=== PATIENT | female | born 1995 | race Caucasian/White ===

== ENCOUNTER 2016-08-16 15:30 | Outpatient (CLI) | payer OTHER | END 2016-08-16 15:31 | disposition home or self-care (01) | DX: M67.472 Ganglion, left ankle and foot (principal); S93.492S Sprain of other ligament of left ankle, sequela; M25.472 Effusion, left ankle; M25.9 Joint disorder, unspecified ==

== ENCOUNTER 2018-03-25 20:07 | Emergency (ER) | payer OTHER ==
[2018-03-25] MEDS ORDERED: ACETAMINOPHEN 500 MG TABLET PO STA (20:17)
[2018-03-25] MEDS ORDERED: METOCLOPRAMIDE 10 MG TABLET PO STA (20:19)
--- NOTE | 2018-03-25 20:33 | ED Physician Documentation ---
History of Present Illness - Stated complaint Stated Complaint: FEVER - Chief complaint Chief Complaint: General - Additonal information Additional information: 22-year-old female presents the emergency department with 1 day of fever, chills, nausea, cough, sore throat and body aches. The patient's symptoms have not improved with DayQuil. The patient denies shortness of breath, abdominal pain headache or stiff neck. No other associated symptoms. Symptoms are described as moderate. Review of Systems Constitutional: reports: Fever, Chills, Fatigue Eyes: denies: Discharge Ears: reports: Ear pain Nose: reports: Rhinorrhea / runny nose, Congestion Throat: denies: Sore throat Cardiac: denies: Chest pain / pressure Respiratory: reports: Cough GI: reports: Nausea. denies: Vomiting : denies: Dysuria Skin: denies: Rash Musculoskeletal: denies: Neck pain Immunocompromised: denies: Chemotherapy PD PAST MEDICAL HISTORY - Past Medical History Past Medical History: No - Past Surgical History Past Surgical History: No - Present Medications Home Medications: Ambulatory Orders Medication Instructions Recorded Confirmed Naproxen 500 mg PO BID PRN #60 tablet 03/25/18 Ondansetron HCl [Zofran] 4 mg PO Q6HR PRN #30 tablet 03/25/18 - Allergies Allergies/Adverse Reactions: Allergies Allergy/AdvReac Type Severity Reaction Status Date / Time Penicillins Allergy Anaphylaxis Verified 03/25/18 20:15 - Social History Does the pt smoke?: No Smoking Status: Never smoker Does the pt drink ETOH?: Yes Does the pt have substance abuse?: Yes - Immunizations Immunizations are current?: Yes PD ED PE NORMAL - General General: Alert and oriented X 3, No acute distress - HEENT HEENT: Atraumatic, PERRL, EOMI, Pharynx benign - Neck Neck: Supple, no meningeal sign - Cardiac Cardiac: Strong equal pulses, Other (regular tachycardia) - Respiratory Respiratory: No respiratory distress, Clear bilaterally - Derm Derm: Normal color - Extremities Extremities: No deformity, No edema - Neuro Neuro: Alert and oriented X 3, Normal speech - Psych Psych: Normal mood PD ED PE EXPANDED - HEENT HEENT: R TM red, L TM red, Nasal congestion, Rhinorrhea, Pharyngeal erythema, Dentition normal. No: R TM dull, R TM bulging, R TM retracted, R TM loss of landmarks, L TM dull, L TM bulging, L TM retracted, L TM loss of landmarks, Swollen tonsils, Tonsillar exudate, Soft palate petecchiae, [employer] Results - Vitals Vitals: Vital Signs - 24 hr 03/25/18 20:10 Temperature 37.7 C H Heart Rate 120 H Respiratory 16 Rate Blood Pressure 130/73 O2 Saturation 98 - Labs Labs: Laboratory Tests 03/25/18 03/25/18 03/25/18 20:22 20:22 20:54 Urine Color YELLOW Urine Clarity HAZY Urine pH 7.5 Ur Specific [place] 1.010 Urine Protein NEGATIVE Urine Glucose (UA) NEGATIVE Urine Ketones NEGATIVE Urine Occult Blood NEGATIVE Urine Nitrite NEGATIVE Urine Bilirubin NEGATIVE Urine Urobilinogen 0.2 (NORMAL) Ur Leukocyte Esterase MODERATE H Urine RBC 0-5 Urine WBC 11-25 H Ur Squamous Epith Cells MANY Squamous H Urine Bacteria Few Ur Microscopic Review INDICATED Urine Culture Comments NOT INDICATED Urine HCG, Qual NEGATIVE Influenza A (Rapid) Negative Influenza B (Rapid) Negative Group A Strep Rapid Negative PD MEDICAL DECISION MAKING - ED course ED course: On reevaluation the patient is resting comfortably and appears to be in no acute distress. Currently, the patient appears appropriate for discharge and ongoing outpatient management. The patient's symptoms seem to represent a viral etiology. On clinical exam there is no evidence of acute otitis media, strep pharyngitis, pneumonia or sepsis necessitating admission to the hospital or antibiotic therapy. I discussed with the patient warning signs and recommended returning to the emergency department immediately for any worsening or any concerns. Departure - Departure Disposition: 01 Home, Self Care Clinical Impression: Acute viral syndrome Condition: Good Instructions: ED Viral Syndrome Follow-Up: DASHAWN GONZALEZ [Primary Care Provider] - Within 1 week Prescriptions: Ondansetron HCl [Zofran] 4 mg PO Q6HR PRN #30 tablet PRN Reason: Nausea / Vomiting Naproxen 500 mg PO BID PRN #60 tablet PRN Reason: Pain Comments: Please return to the emergency department for worsening symptoms or any concerns Forms: Activity restrictions
[2018-03-25 20:58] LABS: BILIRUBIN,URINE NEGATIVE (NEGATIVE); GLUCOSE, URINE (UA) NEGATIVE (NEGATIVE); KETONES,URINE (UA) NEGATIVE (NEGATIVE); LEUKOCYTE ESTERASE, URINE MODERATE (NEGATIVE); NITRITE,URINE NEGATIVE (NEGATIVE); OCCULT BLOOD,URINE NEGATIVE (NEGATIVE); PH,URINE 7.5 PH (5.0-7.5); PROTEIN,URINE NEGATIVE (NEGATIVE); UROBILINOGEN,URINE 0.2 (NORMAL) E.U./dL (NORMAL)
[2018-03-25 20:59] LABS: CLARITY,URINE HAZY (CLEAR); HCG UR QUAL NEGATIVE
[2018-03-25] MEDS ORDERED: NAPROXEN 250 MG TABLET PO STA (21:03)
[2018-03-25 21:05] LABS: BACTERIA,URINE Few /HPF (None Seen); RBC,URINE 0-5 /HPF (0-5); SQUAMOUS EPITHELIAL CELL,UR MANY Squamous (<= Few)
[2018-03-25 21:13] VITALS: BP 125/78
== END 2018-03-25 21:12 | disposition home or self-care (01) ==
LOC: ED 20:07
DX: B34.9 Viral infection, unspecified (principal)
CPT/HCPCS: 81001; 81025; 87070; 87275; 87276; 87430; 99283; A9270; 81003; 87086